=== PATIENT | female | born 2000 ===

== ENCOUNTER 2024-09-23 12:38 | Outpatient (REF) | payer BC, SELFPAY ==
[2024-09-25 07:07] LABS: Age Gdln ACOG Testing Note (.); IGP, rfx Aptima HPV ASCU Note (.)
== END 2024-09-23 12:39 | disposition home or self-care (01) ==
LOC: LAB 12:38
PROVIDERS: Visit Provider Physician Assistant
DX: Z01.419 Encounter for gynecological examination (general) (routine) without abnormal findings (principal)
CPT/HCPCS: 88175